=== PATIENT | female | born 1990 | race Hispanic/Latino ===

== ENCOUNTER 2021-03-16 21:13 | Emergency (ER) | payer SELFPAY ==
--- NOTE | 2021-03-16 21:25 | Emergency Department Report ---
ED Back Pain/Injury HPI - General Stated Complaint: BACK PAIN WITH SPASMS Source: patient Mode of arrival: Ambulatory Limitations: No Limitations - History of Present Illness Initial Comments: Patient is a 30-year-old female with a history of chronic scoliosis and chronic low back with sciatica presents to the ED with acute onset persistent low back pain that radiates to the lower extremities bilaterally for the last 8 hours. Patient states that she was out in the mall shopping when the pain in her low back began and that it progressively got worse. Patient states that the pain is typical of her chronic low back pain with sciatica during exacerbations. Patient states that she did not take any medications at home. Patient denies urinary retention, bowel incontinence, saddle paresthesia, fall, traumatic injury, heavy lifting, nausea and vomiting, abdominal pain, fever, chills, dysuria, urinary frequency and urgency, chest pain or shortness of breath, neck pain, tingling, numbness and weakness of lower extremities bilaterally -: Sudden, hour(s) (8) Similar Symptoms Previously: Yes Place: street Radiation: left leg, right leg Severity: severe Severity scale (0 -10): 7 Quality: sharp, aching Consistency: constant Improves With: none Worsens With: movement, sitting upright, walking Context: turning/twisting, other (walking) Associated Symptoms: denies other symptoms. denies: confusion, weakness, chest pain, numbness, difficulty walking, cough, difficulty urinating, incontinence, fever/chills, constipation, headaches, abdominal pain, loss of appetite, malaise, nausea/vomiting, rash, seizure, shortness of breath, syncope, other Treatments Prior to Arrival: other (none) - Related Data Previous Rx's Medication Instructions Recorded Last Taken Type Baclofen 20 mg PO Q12H PRN #30 tablet 03/16/21 Unknown Rx Naproxen Sodium [Naproxen Sodium 550 mg PO Q12H PRN #30 tablet 03/16/21 Unknown Rx 550mg] predniSONE [Deltasone] 60 mg PO QDAY #15 tab 03/16/21 Unknown Rx ED Review of Systems ROS: Stated complaint: BACK PAIN WITH SPASMS Other details as noted in HPI Constitutional: denies: chills, fever Eyes: denies: eye pain, eye discharge, vision change ENT: denies: ear pain, throat pain Respiratory: denies: cough, shortness of breath, wheezing Cardiovascular: denies: chest pain, palpitations Endocrine: no symptoms reported Gastrointestinal: denies: abdominal pain, nausea, diarrhea Genitourinary: denies: urgency, dysuria, discharge Musculoskeletal: back pain (Low back pain), arthralgia. denies: joint swelling, myalgia Skin: denies: rash, lesions Neurological: denies: headache, weakness, paresthesias Psychiatric: denies: anxiety, depression Hematological/Lymphatic: denies: easy bleeding, easy bruising ED Past Medical Hx - Past Medical History Hx Psychiatric Treatment: Yes (Anxiety, depression) Additional medical history: Chronic low back pain with sciatica; scoliosis - Medications Home Medications: Home Medications Medication Instructions Recorded Confirmed Last Taken Type Baclofen 20 mg PO Q12H PRN #30 tablet 03/16/21 Unknown Rx Naproxen Sodium [Naproxen Sodium 550 mg PO Q12H PRN #30 tablet 03/16/21 Unknown Rx 550mg] predniSONE [Deltasone] 60 mg PO QDAY #15 tab 03/16/21 Unknown Rx ED Physical Exam - General General appearance: alert, in no apparent distress - Head Head exam: Present: atraumatic, normocephalic, normal inspection - Eye Eye exam: Present: normal appearance, PERRL, EOMI Pupils: Present: normal accommodation - ENT ENT exam: Present: normal exam, normal orophraynx, mucous membranes moist, TM's normal bilaterally, normal external ear exam - Neck Neck exam: Present: normal inspection, full ROM - Respiratory Respiratory exam: Present: normal lung sounds bilaterally. Absent: respiratory distress, wheezes, rales, rhonchi, chest wall tenderness, accessory muscle use - Cardiovascular Cardiovascular Exam: Present: regular rate, normal rhythm, normal heart sounds. Absent: systolic murmur, diastolic murmur, rubs, gallop - GI/Abdominal GI/Abdominal exam: Present: soft, normal bowel sounds. Absent: tenderness, guarding, rebound, hyperactive bowel sounds, hypoactive bowel sounds, organomegaly - Extremities Exam Extremities exam: Present: normal inspection, full ROM, normal capillary refill. Absent: tenderness, pedal edema, joint swelling, calf tenderness - Back Exam Back exam: Present: normal inspection, full ROM, tenderness (Palpable lumbosacral paraspinal musculoskeletal tenderness), muscle spasm, paraspinal tenderness. Absent: CVA tenderness (R), CVA tenderness (L), vertebral tenderness - Neurological Exam Neurological exam: Present: alert, oriented X3, CN II-XII intact, normal gait, reflexes normal - Psychiatric Psychiatric exam: Present: normal affect, normal mood - Skin Skin exam: Present: warm, dry, intact, normal color. Absent: rash ED Medical Decision Making - Medical Decision Making This is a 30-year-old female with a history of chronic scoliosis and chronic low back with sciatica presents to the ED with acute onset persistent low back pain that radiates to the lower extremities bilaterally for the last 8 hours. Patient states that she was out in the mall shopping when the pain in her low back began and that it progressively got worse. Patient states that the pain is typical of her chronic low back pain with sciatica during exacerbations. Patient states that she did not take any medications at home. In the ED, patient is alert and oriented x3 and is not in any distress. Patient was treated for pain in the ED based on the history and physical exam findings. Patient was therefore discharged home on pain medications and advised to follow-up with her primary care physician in 7 to 10 days for reevaluation or return to the ED immediately if symptoms get worse - Differential Diagnosis Muscle spasm; chronic back pain; chronic sciatica; muscle strain Critical care attestation.: If time is entered above; I have spent that time in minutes in the direct care of this critically ill patient, excluding procedure time. ED Disposition Clinical Impression: Spasm of muscle of lower back, Strain of muscle, fascia and tendon of lower back, initial encounter, Acute exacerbation of chronic low back pain Chronic low back pain with sciatica Qualifiers: Back pain laterality: bilateral Sciatica laterality: bilateral sciatica Qualified Code(s): M54.42 - Lumbago with sciatica, left side; M54.41 - Lumbago with sciatica, right side; G89.29 - Other chronic pain Disposition: 01 HOME / SELF CARE / HOMELESS Is pt being admited?: No Does the pt Need Aspirin: No Condition: Stable Instructions: Muscle Cramps and Spasms, [id number], Muscle Strain, [id number], Sciatica, [id number], Chronic Back Pain, [id number], Chronic Back Pain Additional Instructions: Take medication with food, drink plenty of fluids and follow-up with your primary care physician in 7 to 10 days for reevaluation. Return to the ED immediately if symptoms get worse. Prescriptions: Baclofen 20 mg PO Q12H PRN #30 tablet PRN Reason: Muscle Spasm predniSONE [Deltasone] 60 mg PO QDAY #15 tab Naproxen Sodium [Naproxen Sodium 550mg] 550 mg PO Q12H PRN #30 tablet PRN Reason: Pain , Severe (7-10) Referrals: [facility] [Provider Group] - 7-10 days Time of Disposition: 21:27 Print Language: [email or web address]
[2021-03-16 21:26] VITALS: BP 114/57
[2021-03-16] MEDS: KETOROLAC 60 MG/2 ML INJ IM ONE ×2 (21:44→22:20)
[2021-03-16] MEDS: dexAMETHasone 20 MG/5 ML VIAL IM ONE ×2 (21:45→22:22)
[2021-03-16] MEDS: diazePAM 5 MG TAB PO ONE ×2 (21:45→22:20)
== END 2021-03-16 22:25 | disposition home or self-care (01) ==
LOC: ED 21:13
DX: S39.012A Strain of muscle, fascia and tendon of lower back, initial encounter (principal); M54.41 Lumbago with sciatica, right side; M62.830 Muscle spasm of back; X58.XXXA Exposure to other specified factors, initial encounter; Y93.89 Activity, other specified; Y92.89 Other specified places as the place of occurrence of the external cause; Y99.8 Other external cause status
CPT/HCPCS: 96372; 99282; J1100; J1885